=== PATIENT | female | born 1990 | race Hispanic/Latino ===

== ENCOUNTER 2018-09-16 19:56 | Emergency (ER) | payer SELFPAY ==
[2018-09-16] MEDS ORDERED: Lorazepam 2 MG/ML VIAL ONE (20:31)
[2018-09-16 20:56] LABS: #Eosinphils 0.1 thou/uL (0.0-0.7); #Lymphocytes 1.7 thou/uL (1.20-3.40); #Monocytes 0.5 thou/uL (0.11-0.59); #Neutrophils 5.5 thou/uL (1.40-6.50); %Basophils 0.5 % (0.0-1.0); %Eosinophils 0.7 % (0.0-10.0); %Lymphocytes 21.7 % (21.0-51.0); %Monocytes 6.3 % (0.0-10.0); %Neutrophils 70.8 % (42.0-75.0); Hemoglobin 9.9 g/dL (12.0-16.0); Mean Corpuscular Hemoglobin 21.1 pg (27.0-31.0); Mean Corpuscular Volume 68.1 fL (78.0-98.0); Mean Platelet Volume 10.3 fL (7.4-10.4); Platelet Count 295 thou/uL (130-400); RBC Distribution Width 17.3 % (11.5-14.5); Red Blood Cell (RBC) Count 4.69 mill/uL (4.20-5.40); White Blood Cell (WBC) Count 7.8 thou/uL (4.8-10.8)
[2018-09-16 21:17] LABS: ALT (SGPT) 10 U/L (8-55); AST (SGOT) 15 U/L (5-34); Albumin 4.6 g/dL (3.5-5.0); Alkaline Phosphatase 68 U/L (40-150); Anion Gap 12 mmol/L (10-20); BUN (Urea Nitrogen) 12 mg/dL (7.0-18.7); Bilirubin, Total 0.3 mg/dL (0.2-1.2); Calc. Creatinine Clearance 0 mL/min (70-130); Calcium 9.4 mg/dL (7.8-10.44); Carbon Dioxide 22 mmol/L (22-29); Chloride 106 mmol/L (98-107); Estimated GFR-MDRD Greater than 90; Globulin 3.4 g/dL (2.4-3.5); Glucose 101 mg/dL (70-105); Potassium 3.4 mmol/L (3.5-5.1); Sodium 137 mmol/L (136-145)
[2018-09-16 21:25] LABS: Pregnancy Test - Urine (BHCG) POSITIVE (Negative); Pregu Control Background? CLEAR/WHITE (CLR/WHITE); Pregu Control Bar Appear? YES (CONTROL BAR); Specific Gravity 1.005 (1.002-1.036)
[2018-09-16 21:35] LABS: Amphetamine Not Detected (NotDetected); Barbiturates Screen Not Detected (NotDetected); Benzodiazepine Screen Not Detected (NotDetected); Cocaine Metabolite Screen Not Detected (NotDetected); Medtox Control Line Valid? VALID (VALID); Medtox Reader # READER 4; Methadone Not Detected (NotDetected); Methamphetamine Not Detected (NotDetected); Opiate Screen Not Detected (NotDetected); Oxycodone Screen Not Detected (NotDetected); Phencyclidine (PCP) Not Detected (NotDetected); THC/Cannabinoid Screen Not Detected (NotDetected); Tricyclic Screen Not Detected (NotDetected)
== END 2018-09-16 23:17 | disposition home or self-care (01) ==
LOC: ERS 19:56
DX: R00.2 Palpitations (principal)
CPT/HCPCS: 80053; 80306; 81025; 84443; 85025; 85379; 93005; 94760; 96361; 96374; J2060

== ENCOUNTER 2019-05-11 09:50 | Inpatient (IN) | payer OTHER ==
[2019-05-11 10:39] VITALS: BMI 35.5
[2019-05-11] MEDS ORDERED: Lactated Ringer's 1,000 ML IV SCH (10:42)
[2019-05-11] MEDS ORDERED: Bicitra 30 ML UDCUP PO SCH (10:42)
[2019-05-11] MEDS ORDERED: Ondansetron PF 4 MG/2 ML Vial IVP PRN ×3 (10:42→13:58)
[2019-05-11] MEDS ORDERED: Promethazine HCl 25 MG/ML VIAL IM PRN ×3 (10:42→13:13)
[2019-05-11] MEDS ORDERED: hydrALAZINE 20 MG/ML VIAL SLOW IVP PRN ×2 (10:42→13:58)
[2019-05-11] MEDS ORDERED: Bicitra 30 ML UDCUP ONE (11:09)
[2019-05-11 11:18] LABS: Hemoglobin 13.5 g/dL (12.0-16.0); Mean Corpuscular Hemoglobin 28.9 pg (27.0-31.0); Mean Corpuscular Volume 82.6 fL (78.0-98.0); Mean Platelet Volume 10.6 fL (7.4-10.4); Platelet Count 167 thou/uL (130-400); Red Blood Cell (RBC) Count 4.66 mill/uL (4.20-5.40); White Blood Cell (WBC) Count 9.3 thou/uL (4.8-10.8)
[2019-05-11 12:00] LABS: HBSAg Index 0.13 S/CO (0-0.99); Hep B Surf Ag Non-Reactive S/CO (NonReactive); Syphilis Antibody Nonreactive (Nonreactive); Syphilis Antibody Index 0.04 S/CO (<1.00 Non-Reactive)
--- NOTE | 2019-05-11 12:58 | PDOC.OPDEL ---
OB Operative/Delivery Note Delivery Dr/Surgeon: Gabe Assist: Issa Pre-Delivery Diagnosis: scheduled section Weeks gestation: 39 Anesthesia: spinal - Findings A Sex: male Weight: 7 lb 7 oz - 1 min: 8 - 5 min: 9 - Additional Findings/Plan Placenta delivered: manual removal findings: low transverse hysterotomy without extension, normal uterus, normal tubes, normal ovaries Estimated blood loss: 460ml Post delivery plan: routine recovery
[2019-05-11] MEDS ORDERED: NS / Oxytocin 40 units/1000ml 1,000 ML ONE (13:06)
[2019-05-11] MEDS ORDERED: Promethazine HCl 25 MG/ML VIAL SLOW IVP PRN (13:12)
[2019-05-11] MEDS ORDERED: Ondansetron HCl/PF 4 MG/2 ML Vial IVP PRN (13:12)
[2019-05-11] MEDS ORDERED: Naloxone HCl 0.4 mg/ml Vial IV PRN (13:13)
[2019-05-11] MEDS ORDERED: diphenhydrAMINE 50 MG/ML VIAL IVP PRN (13:13)
[2019-05-11] MEDS ORDERED: Promethazine HCl 25 MG SUPP PR PRN (13:13)
[2019-05-11] MEDS ORDERED: Naloxone HCl 0.4 mg/ml Vial IVP PRN ×2 (13:13)
[2019-05-11] MEDS ORDERED: Communication Order-Pharmacy FS SCH (13:15)
[2019-05-11] MEDS ORDERED: Simethicone Chewable 80 MG TAB PO PRN (13:58)
[2019-05-11] MEDS ORDERED: Lanolin Ointment 7 GM TUBE TOP PRN (13:58)
[2019-05-11] MEDS ORDERED: diphenhydrAMINE 25 MG CAP PO PRN (13:58)
[2019-05-11] MEDS ORDERED: Adacel (T-DAP) 0.5 ML SYRINGE IM ONE (13:58)
[2019-05-11] MEDS ORDERED: NS / Oxytocin 40 units/1000ml 1,000 ML IV SCH (13:58)
[2019-05-11] MEDS ORDERED: Bisacodyl 10 MG SUPP PR PRN (13:58)
[2019-05-11] MEDS: Ketorolac Tromethamine 30 MG/ML VIAL IVP PRN (15:27)
[2019-05-11] MEDS ORDERED: CEFAZOLIN 2 GM in Premix Bag 1 BAG IVPB SCH (19:00)
--- NOTE | 2019-05-11 19:45 | OP ---
DATE OF PROCEDURE: 05/11/2019 PREOPERATIVE DIAGNOSES: 1. Previous section x2. 2. Thirty-nine weeks. POSTOPERATIVE DIAGNOSIS: Status post repeat low transverse section. HOME HOUSEKEEPER: Pino Parsons MD ANESTHESIA: Spinal per Dr. Rae. COMPLICATIONS: None. PROCEDURE PERFORMED: Repeat low transverse section. ESTIMATED BLOOD LOSS: 450 mL. OPERATIVE FINDINGS: 1. Low-transverse hysterotomy without extension. Normal appearing uterus, tubes, and ovaries bilaterally. 2. Normal-appearing placenta with 3-vessel cord. 3. Vigorous male infant, Apgars 8 and 9, weight 7 pounds 7 ounces to nursery. 4. Fundus firm after delivery of the placenta and closure of the hysterotomy. DESCRIPTION OF PROCEDURE: The patient was taken back to the OR with IV fluids running. When she was in the OR, spinal anesthesia was obtained. The patient was placed in dorsal supine position with a left lateral tilt. The abdomen was then prepped and draped in normal fashion for section. Prior to that, a Wallis catheter was placed using sterile technique, 2 g of Ancef was administered for prophylactic antibiotics prior to the start of the case. After the patient was prepped and draped, anesthesia was tested and found to be adequate. The surgeons were gowned and gloved. A Pfannenstiel skin incision was made with a scalpel. Skin incision was carried down through the subcutaneous tissue to the fascia. Once the fascia was reached, it was incised in the midline and extended superolaterally using curved Kidd scissors. Joe clamps were placed at the superior border of the fascia, which was sharply and bluntly dissected off the rectus abdominis muscles in routine fashion. Minimal adhesive disease was noted. Joe clamps were then placed at the inferior border of the fascia, which was sharply and bluntly dissected down towards the level of pubic symphysis. The rectus muscles and peritoneum were bluntly dissected and entered in the midline. The peritoneum was stretched laterally. An Tucker O retractor was placed into the peritoneal cavity for retraction visualization and protection of the wound. The bladder reflection was noted near the planned hysterotomy site of the lower uterine segment. The bladder reflection was dissected away from the planned hysterotomy site using Metzenbaum scissors and fine dissection technique. After the bladder reflection was dissected, a low transverse hysterotomy was made with a scalpel. The hysterotomy was bluntly entered and stretched superolaterally using Weber maneuver. Amniotomy was performed. Clear fluid noted. The was delivered through the hysterotomy without difficulty. The nose and mouth were suctioned. The cord was doubly clamped and cut, and the infant was handed off to special care nurse in attendance. Cord blood was collected. The placenta was delivered. The uterus was exteriorized, massaged to firm and cleared of clot and debris. The uterus was returned to the abdominal cavity. The hysterotomy was closed with Monocryl suture in a running locked fashion. A second layer of hysterotomy closure was completed. After the hysterotomy was closed, it was inspected and no areas of bleeding were noted. The hysterotomy and paracolic gutters were irrigated and suctioned dry. No areas of bleeding were noted. The Tucker O retractor was removed from the abdominal cavity. The rectus muscles and fascia were inspected with no areas of bleeding noted. The rectus fascia was reapproximated with PDS suture from corner to corner and tied separately in the midline. The subcutaneous tissue was then irrigated and dried. Any small areas of bleeding were controlled with Bovie cauterization. Subcutaneous layer was reapproximated with plain gut suture. The skin was closed with 4-0 Monocryl and dressed with Dermabond dressing. The counts were correct x2. The patient tolerated the procedure well. There were no complications. Job ID: [id number]
[2019-05-11] MEDS: Ferrous Sulfate 325 MG TAB PO SCH (21:00)
[2019-05-11] MEDS: Docusate Calcium (SURFAK) 240 MG CAP PO SCH (21:00)
[2019-05-12] MEDS: Ketorolac Tromethamine 30 MG/ML VIAL IVP PRN (00:14)
[2019-05-12 06:18] LABS: Hemoglobin 11.7 g/dL (12.0-16.0); Mean Corpuscular HGB CONC 34.5 g/dL (32.0-36.0); Mean Corpuscular Hemoglobin 29.4 pg (27.0-31.0); Mean Corpuscular Volume 85.3 fL (78.0-98.0); Mean Platelet Volume 10.1 fL (7.4-10.4); Platelet Count 118 thou/uL (130-400); RBC Distribution Width 16.5 % (11.5-14.5); Red Blood Cell (RBC) Count 3.99 mill/uL (4.20-5.40); White Blood Cell (WBC) Count 7.3 thou/uL (4.8-10.8)
[2019-05-12] MEDS: HYDROcodone/Acetaminophen 5/325 mg Tablet PO PRN ×3 (06:50→19:30)
--- NOTE | 2019-05-12 08:35 | PDOC.PP ---
Post Progress Note Post Day #: 1 Subjective: doing well, minimal discomfort PO intake tolerated: yes Flatus: yes Ambulation: yes Vital Signs (12 hours) Temp Pulse Resp BP Pulse Ox 05/12/19 07:53 98.4 F 88 16 120/73 99 05/12/19 04:10 97.9 F 71 18 132/75 05/12/19 00:00 98.1 F 72 18 121/75 Weight Weight 182 lb - Physical Examination General: NAD Respiratory: non-labored breathing Abdominal: no distention Extremities: negative homans (B) Skin: CS incision dry & intact, no rash Neurological: no gross focal deficits Psychiatric: A&Ox3, normal affect Result Diagrams: 05/12/19 06:00 Additional Labs: Post Labs Blood Type A POSITIVE 05/11/19 11:27 Hep Bs Antigen Non-Reactive S/CO (NonReactive) 05/11/19 10:53 (1) Status post repeat low transverse section Code(s): Z98.891 - HISTORY OF UTERINE SCAR FROM PREVIOUS SURGERY Status: Acute - Assessment/Plan POD1 doing well, minimal pain, continue PP care.
[2019-05-12] MEDS: Docusate Calcium (SURFAK) 240 MG CAP PO SCH ×2 (10:47→21:51)
[2019-05-12] MEDS: Prenatal Vitamin 1 TAB PO SCH (10:47)
[2019-05-12] MEDS: Ferrous Sulfate 325 MG TAB PO SCH ×2 (10:47→21:52)
[2019-05-12] MEDS: Ibuprofen 800 MG TAB PO SCH ×2 (14:02→21:51)
[2019-05-13] MEDS: HYDROcodone/Acetaminophen 5/325 mg Tablet PO PRN ×3 (03:41→13:33)
[2019-05-13] MEDS: Ibuprofen 800 MG TAB PO SCH ×2 (05:44→13:31)
[2019-05-13 07:57] VITALS: BP 128/83; TEMP 98.1
--- NOTE | 2019-05-13 09:17 | PDOC.PP ---
Post Progress Note Post Day #: 2 Subjective: doing well, no concerns, minimal discomfort PO intake tolerated: yes Flatus: yes Ambulation: yes Vital Signs (12 hours) Temp Pulse Resp BP Pulse Ox 05/13/19 07:56 98.1 F 73 20 128/83 99 05/13/19 03:30 98.0 F 78 18 141/88 H 05/13/19 00:12 97.7 F 69 18 124/81 Weight Weight 182 lb - Physical Examination General: NAD Respiratory: non-labored breathing Extremities: negative homans (B) Skin: CS incision dry & intact Neurological: no gross focal deficits Psychiatric: A&Ox3, normal affect Result Diagrams: 05/12/19 06:00 Additional Labs: Post Labs Blood Type A POSITIVE 05/11/19 11:27 Hep Bs Antigen Non-Reactive S/CO (NonReactive) 05/11/19 10:53 (1) Status post repeat low transverse section Code(s): Z98.891 - HISTORY OF UTERINE SCAR FROM PREVIOUS SURGERY Status: Acute - Assessment/Plan POD2 from [facility], doing well, plan for DC today.
[2019-05-13] MEDS: Prenatal Vitamin 1 TAB PO SCH (09:35)
[2019-05-13] MEDS: Docusate Calcium (SURFAK) 240 MG CAP PO SCH (09:35)
[2019-05-13] MEDS: Ferrous Sulfate 325 MG TAB PO SCH (09:36)
== END 2019-05-13 14:15 | disposition home or self-care (01) | DRG 788 ==
LOC: L&D-LIB 09:50 → L&D 10:57 → 3SW 14:28
PROVIDERS: ADMIT Obstetrics & Gynecology; ATTEND Obstetrics & Gynecology
PROC: 10D00Z1 Extraction of Products of Conception, Low, Open Approach (ICD-10-PCS; principal; 2019-05-11)
DX: O34.211 Maternal care for low transverse scar from previous cesarean delivery (principal); Z37.0 Single live birth; Z3A.39 39 weeks gestation of pregnancy
CPT/HCPCS: 36415; 51702; 85027; 86780; 86850; 86900; 86901; 87340; J0690; J1885